=== PATIENT | female | born 1955 | race Caucasian/White ===

== ENCOUNTER → 2019-02-01 | Outpatient (CLI) | payer OTHER ==
--- NOTE | 2019-02-02 01:28 | REP ---
Clinical: Trauma. Abrasion Technique: AP, lateral, bilateral oblique views left foot . Findings: Comminuted fracture involving the entire first toe distal phalanx with overlying soft tissue swelling. Underlying age-related degenerative changes primarily involving the first metatarsophalangeal joint. Impression: Comminuted crush injury involving the first toe distal phalanx. Electronically Signed by Raghu Betancourt MD 02/02/2019 01:19 A
== END ==
LOC: M WUC 12:06
PROVIDERS: ATTEND Nurse Practitioner Family
DX: S97.82XA Crushing injury of left foot, initial encounter (principal); X58.XXXA Exposure to other specified factors, initial encounter; Y92.89 Other specified places as the place of occurrence of the external cause